=== PATIENT | male | born 1985 | race Caucasian/White ===

== ENCOUNTER 2024-01-14 12:42 | Emergency (ER) | payer SELFPAY ==
[~2024-01-14] VITALS: Ht 170.2 cm; Wt 91.0 kg
[2024-01-14 13:08] VITALS: BP 112/66; PULSE 89; RESP 18; TEMP 98.5; O2SAT 100
[2024-01-14] MEDS ORDERED: TETANUS, DIPHTHERIA, PERTUSSIS VAC/PF 0.5ML (>10YR OLD) IM ONE (14:15)
[2024-01-14] MEDS ORDERED: PENI500T MT (14:17)
[2024-01-14] MEDS ORDERED: IBUP-2029 MT (14:19)
== END 2024-01-14 15:20 | disposition home or self-care (01) ==
LOC: ER 12:42
DX: K04.7 Periapical abscess without sinus (principal)
CPT/HCPCS: 99281